=== PATIENT | male | born 1990 | race Caucasian/White ===

== ENCOUNTER 2023-07-29 09:41 | Emergency (ER) | payer OTHER ==
[~2023-07-29] VITALS: Ht 177.8 cm; Wt 90.9 kg
[2023-07-29 09:42] VITALS: TEMP 98
[2023-07-29] MEDS ORDERED: BUPR1FIL3 SL (09:48)
[2023-07-29 12:37] LABS: PH,URINE DRUG SCREEN 5.5 (5.0-8.0)
[2023-07-29 13:00] LABS: ALCOHOL, URINE DRUG SCREEN NEGATIVE (NEGATIVE); AMPHET/METH SCREEN,URINE POSITIVE (NEGATIVE); BARBITURATE SCREEN, URINE NEGATIVE (NEGATIVE); BENZODIAZEPINES SCREEN,URINE NEGATIVE (NEGATIVE); CANNABINOID SCREEN,URINE POSITIVE (NEGATIVE); COCAINE SCREEN,URINE NEGATIVE (NEGATIVE); METHADONE SCREEN, URINE NEGATIVE (NEGATIVE); OPIATE SCREEN,URINE NEGATIVE (NEGATIVE); PHENCYCLIDINE SCREEN,URINE POSITIVE (NEGATIVE)
[2023-07-29] MEDS ORDERED: NALO4SPR NASAL (13:13)
[2023-07-29 13:15] VITALS: BP 147/83; PULSE 97; RESP 15
== END 2023-07-29 13:47 | disposition home or self-care (01) ==
LOC: EMS 09:41
DX: F19.10 Other psychoactive substance abuse, uncomplicated (principal); F32.A Depression, unspecified; F41.9 Anxiety disorder, unspecified; F12.90 Cannabis use, unspecified, uncomplicated
CPT/HCPCS: 80307; 99283